=== PATIENT | male | born 1960 | race Caucasian/White ===

== ENCOUNTER → 2018-05-09 | Outpatient (CLI) | payer BC, OTHER | LOC: RAD 11:58 | DX: L40.0 Psoriasis vulgaris (principal); Z79.899 Other long term (current) drug therapy ==

== ENCOUNTER → 2019-06-09 | Outpatient (CLI) | payer BC | LOC: RAD 10:34 | DX: L40.0 Psoriasis vulgaris (principal); Z79.899 Other long term (current) drug therapy ==

== ENCOUNTER → 2019-06-19 | Outpatient (CLI) | payer BC | LOC: RAD 13:08 | DX: L40.0 Psoriasis vulgaris (principal); Z79.899 Other long term (current) drug therapy ==